=== PATIENT | female | born 1985 | race Caucasian/White ===

== ENCOUNTER 2020-04-08 12:57 | Outpatient (CLI) | payer BC | END 2020-04-08 12:58 | disposition home or self-care (01) | LOC: COV 12:57 | PROVIDERS: ATTEND Family Medicine | DX: R05 Cough (principal); Z20.828 Contact with and (suspected) exposure to other viral communicable diseases; M79.10 Myalgia, unspecified site; R53.83 Other fatigue; R68.83 Chills (without fever); R19.7 Diarrhea, unspecified; R09.81 Nasal congestion; J02.9 Acute pharyngitis, unspecified ==